=== PATIENT | male | born 1960 | race Caucasian/White ===

== ENCOUNTER 2021-07-27 18:43 | Emergency (ER) | payer OTHER ==
[2021-07-27 19:27] LABS: BASOPHIL 0.9 % (0-2); EOSINOPHIL 2.8 % (0-5); HCT 46.6 % (42.0-52.0); HGB 15.8 g/dl (13.2-18.0); LYMPHOCYTE 16.8 % (15-48); MCH 28.5 pg (25.0-31.0); MCHC 33.9 g/dL (32.0-36.0); MCV 84.1 fL (78.0-100.0); MONOCYTE 6.6 % (0-12); MPV 10.2 fL (6.0-9.5); NEUTROPHIL 72.8 % (41-80); NRBC 0; PLT 265 K/uL (150-400); RBC 5.54 M/uL (4.70-6.00); RDW 14.4 % (11.5-14.0); WBC 7.6 K/uL (4.0-10.5)
[2021-07-27 19:45] LABS: ALBUMIN 3.7 g/dL (3.4-5.0); BILIRUBIN - TOTAL 0.7 mg/dL (0.2-1.0); BUN/CREAT RATIO (CALC) 11.6 RATIO; CREATININE 2.15 mg/dL (0.67-1.17); GLOBULIN (CALCULATION) 4.3 g/dL
[2021-07-27 19:47] LABS: LACTIC ACID 0.4 mmol/L (0.4-1.9)
[2021-07-27 19:55] LABS: BILIRUBIN NEGATIVE (NEGATIVE); BLOOD 1+ Ery/uL (NEGATIVE); CLARITY CLEAR (CLEAR); COLOR YELLOW (YELLOW); GLUCOSE (U) NORMAL (NORMAL); LEUKOCYTES NEGATIVE Leu/uL (NEGATIVE); NITRITE NEGATIVE (NEGATIVE); PROTEIN 2+ mg/dL (NEGATIVE); UROBILINOGEN 0.2 mg/dL (0.2-1.0)
[2021-07-27 20:13] LABS: BACTERIA TRACE
== END 2021-07-28 05:23 | disposition other institution (70) ==
LOC: FER 18:43
PROVIDERS: Emergency Medicine
DX: I16.0 Hypertensive urgency (principal); I21.4 Non-ST elevation (NSTEMI) myocardial infarction; I11.0 Hypertensive heart disease with heart failure; I50.9 Heart failure, unspecified; N17.9 Acute kidney failure, unspecified; N13.2 Hydronephrosis with renal and ureteral calculous obstruction; J45.909 Unspecified asthma, uncomplicated; Z20.822 Contact with and (suspected) exposure to COVID-19; Z87.442 Personal history of urinary calculi; Z91.041 Radiographic dye allergy status
CPT/HCPCS: 36415; 70450; 71250; 80053; 81001; 83605; 83880; 84145; 84484; 85025; 87040; 93005; J1940; J2543; J3475; J3490; J7050; U0002